=== PATIENT | female | born 1945 | race Caucasian/White ===

== ENCOUNTER 2019-12-31 08:32 | Day surgery (SDC) | payer MEDICARE, OTHER ==
[~2019-12-31] VITALS: Ht 172.7 cm; Wt 79.3 kg
[~2019-12-31 08:32] MED LIST: ALBU90OI INH; ASPI81CH PO; Antivert25 MG PO; CITA20 PO; OMEP20ER PO; SIMV10 PO; Singulair10 MG PO; TRIHYD253B PO
--- NOTE | 2019-12-31 09:27 | NUR ---
12/31/19 0927 Sammi Arreguin [facility].SULLY NOTIFIED DR MORRIS THAT PT HAS HAD ANAPHALAXIS TO IV XYLOCAINE. DR MORRIS SAYS THE LIDOCAINE EYE DROP IS OK TO USE.
== END 2019-12-31 11:11 | disposition home or self-care (01) ==
LOC: ORSCSDS 08:32
PROVIDERS: Ophthalmology
PROC: 08RK3JZ Replacement of Left Lens with Synthetic Substitute, Percutaneous Approach (ICD-10-PCS; principal; 2019-12-31 10:00)
DX: H25.12 Age-related nuclear cataract, left eye (principal); I10 Essential (primary) hypertension; Z79.899 Other long term (current) drug therapy
CPT/HCPCS: J2001; J2250; J3010; J3301; J7040; V2632

== ENCOUNTER 2020-06-01 10:30 | Emergency (ER) | payer MEDICARE, OTHER ==
[~2020-06-01] VITALS: Ht 172.7 cm; Wt 77.1 kg
[2020-06-01] MEDS ORDERED: Zocor40 MG PO (11:16)
[2020-06-01] MEDS ORDERED: Aldactone100 MG PO (11:16)
[2020-06-01] MEDS ORDERED: Lexapro 2020 MG PO (11:16)
[2020-06-01 11:29] LABS: BASOPHILS ABSOLUTE AUTO 0.03 K/mm3 (0.00-0.23); BASOPHILS PERCENT AUTO 1 % (0-2); EOSINOPHILS ABSOLUTE AUTO 0.14 K/mm3 (0.00-0.68); EOSINOPHILS PERCENT AUTO 2 % (0-6); Hematocrit 43.3 % (33.0-51.0); Hemoglobin 14.7 g/dL (11.5-16.0); IMMATURE GRAN ABSOLUTE AUTO 0.03 K/mm3 (0.00-0.10); IMMATURE GRAN PERCENT AUTO 1 % (0-1); LYMPHOCYTES ABSOLUTE AUTO 1.84 K/mm3 (0.84-5.20); LYMPHOCYTES PERCENT AUTO 32 % (21-46); MONOCYTES ABSOLUTE AUTO 0.55 K/mm3 (0.16-1.47); MONOCYTES PERCENT AUTO 10 % (4-13); Mean Corpuscular HGB 31.1 pg (26.0-34.0); Mean Corpuscular HGB Conc 33.9 g/dL (31.5-36.5); Mean Corpuscular Volume 92 fL (80-100); Mean Platelet Volume 10.6 fL (9.1-12.4); NEUTROPHILS ABSOLUTE AUTO 3.21 K/mm3 (1.96-9.15); NEUTROPHILS PERCENT AUTO 55 % (41-73); Platelet Count 216 K/mm3 (150-400); RDW Coefficient Variation 12.4 % (11.7-14.2); RDW Standard Deviation 41.3 fL (35.1-46.3); Red Blood Cell Count 4.73 M/mm3 (3.80-5.20)
[2020-06-01 12:05] LABS: Anion Gap 8 mmol/L (6-16); Blood Urea Nitrogen 10 mg/dL (8-24); Bun/Creatinine Ratio 15.6 (12.0-20.0); CO2, Blood 26 mmol/L (21-32); Calcium, Blood 9.4 mg/dL (8.5-10.1); Chloride, Blood 107 mmol/L (98-108); Creatinine, Blood 0.64 mg/dL (0.40-1.00); Glomerular Filtration Rate >60 (60-); Glucose, Blood 120 mg/dL (70-99); Potassium, Blood 3.8 mmol/L (3.5-5.5); Sodium, Blood 141 mmol/L (136-145); Troponin I <0.015 ng/mL (0.000-0.040)
[2020-06-01] MEDS ORDERED: HYDR1TAB94 PO (12:46)
== END 2020-06-01 12:55 | disposition home or self-care (01) ==
LOC: ER 10:30
PROVIDERS: Emergency Medicine
DX: R07.9 Chest pain, unspecified (principal); I10 Essential (primary) hypertension; J45.909 Unspecified asthma, uncomplicated; Z79.899 Other long term (current) drug therapy; Z88.1 Allergy status to other antibiotic agents; Z88.4 Allergy status to anesthetic agent; Z88.2 Allergy status to sulfonamides; Z88.5 Allergy status to narcotic agent; Z79.82 Long term (current) use of aspirin
CPT/HCPCS: 36415; 71046; 80048; 84484; 85025; 93005; 93010; 99284-25

== ENCOUNTER 2022-05-25 08:18 | Day surgery (SDC) | payer MEDICARE, OTHER ==
[~2022-05-25] VITALS: Ht 172.7 cm; Wt 72.3 kg
[~2022-05-25 08:18] MED LIST changes: +Aldactone100 MG PO; +HYDR1TAB94 PO; +Lexapro 2020 MG PO; +Zocor40 MG PO
[2022-05-25] MEDS ORDERED: DOXY100 PO (08:58)
--- NOTE | 2022-05-25 09:38 | NUR ---
05/25/22 0938 Guerrero Menon PT STATES LIDOCAINE ALLERGY BUT REACTION HAPPENED AFTER LARGE LIDOCAINE BOLUS BY IV. NO PAST ISSUES WITH LIDOCAINE OTHERWISE. VALENTINE JACKSON.
== END 2022-05-25 10:03 | disposition home or self-care (01) ==
LOC: ORSCSDS 08:18
PROVIDERS: Ophthalmology
PROC: 08DJ3ZZ Extraction of Right Lens, Percutaneous Approach (ICD-10-PCS; principal; 2022-05-25 09:30)
DX: H25.11 Age-related nuclear cataract, right eye (principal); Z96.1 Presence of intraocular lens; I10 Essential (primary) hypertension; J45.909 Unspecified asthma, uncomplicated; Z79.899 Other long term (current) drug therapy
CPT/HCPCS: J2001; J2250; J3010; J3301; J7040; V2632

== ENCOUNTER 2023-02-28 08:13 | Day surgery (SDC) | payer MEDICARE, OTHER ==
[~2023-02-28] VITALS: Ht 172.7 cm; Wt 72.3 kg
[~2023-02-28 08:13] MED LIST changes: +DOXY100 PO
[2023-02-28 10:45] VITALS: BP 119/70
--- NOTE | 2023-02-28 10:48 | NUR ---
02/28/23 Andrew8 Estephania Galaviz IV REMOVED. SITE WNL, CATH INTACT.
--- NOTE | 2023-02-28 11:03 | NUR ---
02/28/23 [email or web address] Estephania Galaviz LATE ENTRY: NO LIDOCAINE GIVEN D/T PATIENT REPORT OF ALLERGY TO ZYLOCAINE IN WHICH SHE EXPERIENCED BREATHING PROBLEMS. MADE AWARE.
== END 2023-02-28 10:54 | disposition home or self-care (01) ==
LOC: ORSCSDS 08:13
PROVIDERS: Specialist
PROC: 0DBL8ZX Excision of Transverse Colon, Via Natural or Artificial Opening Endoscopic, Diagnostic (ICD-10-PCS; principal; 2023-02-28 09:45)
DX: R19.4 Change in bowel habit (principal); R10.30 Lower abdominal pain, unspecified; D12.3 Benign neoplasm of transverse colon; K64.4 Residual hemorrhoidal skin tags; K64.8 Other hemorrhoids; K57.30 Diverticulosis of large intestine without perforation or abscess without bleeding; I10 Essential (primary) hypertension; E78.5 Hyperlipidemia, unspecified; Z79.899 Other long term (current) drug therapy
CPT/HCPCS: 88305; J2704; J7120

== ENCOUNTER 2024-11-04 14:11 | Emergency (ER) | payer OTHER, MEDICARE ==
[~2024-11-04] VITALS: Ht 160 cm; Wt 74.8 kg
[2024-11-04 14:22] VITALS: BP 161/85
== END 2024-11-04 16:09 | disposition home or self-care (01) ==
LOC: ER 14:11
DX: S01.511A Laceration without foreign body of lip, initial encounter (principal); J45.909 Unspecified asthma, uncomplicated; G47.30 Sleep apnea, unspecified; I10 Essential (primary) hypertension; Z88.1 Allergy status to other antibiotic agents; Z88.8 Allergy status to other drugs, medicaments and biological substances; Z88.4 Allergy status to anesthetic agent; Z88.5 Allergy status to narcotic agent; Z79.899 Other long term (current) drug therapy; Z59.89 Other problems related to housing and economic circumstances; W01.198A Fall on same level from slipping, tripping and stumbling with subsequent striking against other object, initial encounter
CPT/HCPCS: 12011; 70450; 99283-25

== ENCOUNTER → 2025-02-26 | Outpatient (CLI) | payer MEDICARE, OTHER ==
[2025-02-26 16:23] LABS: Red Blood Cells, Urine TNTC /hpf (0-2); White Blood Cells, Urine 25-50 /hpf (0-5)
== END | disposition home or self-care (01) ==
LOC: LAB 14:00 → LAB SHORT 14:00
PROVIDERS: Family Medicine
DX: R30.0 Dysuria (principal)
CPT/HCPCS: 81015; 87086